=== PATIENT | female | born 1935 | race Caucasian/White ===

== ENCOUNTER 2017-12-25 00:52 | Emergency (ER) | payer MEDICARE ==
[~2017-12-25] VITALS: Ht 170.2 cm; Wt 70.3 kg
[~2017-12-25 00:52] MED LIST: LEVSOD50 PO; PRAMIPEXOLE E0.75 MG PO
[2017-12-25] MEDS ORDERED: MIRAPEX (01:03)
[2017-12-25] MEDS ORDERED: LIDO700A20 TOP (02:04)
[2017-12-25] MEDS ORDERED: HYDR1TAB94 PO (02:04)
== END 2017-12-25 02:40 | disposition home or self-care (01) ==
LOC: ER 00:52
DX: S22.31XA Fracture of one rib, right side, initial encounter for closed fracture (principal); W18.09XA Striking against other object with subsequent fall, initial encounter; Z79.899 Other long term (current) drug therapy; G20 Parkinson's disease
CPT/HCPCS: 71101; 99283

== ENCOUNTER 2018-09-27 15:27 | Observation (INO) | payer MEDICARE ==
[~2018-09-27] VITALS: Ht 170.2 cm; Wt 73.0 kg
[~2018-09-27 15:27] MED LIST changes: +HYDR1TAB94 PO; +LIDO700A20 TOP; +MIRAPEX
[2018-09-27 16:35] LABS: Calcium, Ionized (POC) 1.12 mmol/L (1.10-1.46); Chloride (POC) 104 mmol/L (98-108); Glucose (ISTAT POC) 83 mg/dL (70-99); Hemoglobin (POC) 11.2 g/dL (12.0-16.0); Potassium (POC) 4.2 mmol/L (3.5-5.5); Sodium (POC) 139 mmol/L (135-148); Total CO2 (POC) 22 mmol/L (21-32)
[2018-09-27] MEDS ORDERED: Carbidopa-Levo1 EAC1 PO (17:50)
[2018-09-27] MEDS ORDERED: HYDR1TAB94 PO (17:50)
[2018-09-27 18:51] LABS: BASOPHILS ABSOLUTE AUTO 0.03 K/mm3 (0.00-0.23); BASOPHILS PERCENT AUTO 1 % (0-2); EOSINOPHILS ABSOLUTE AUTO 0.07 K/mm3 (0.00-0.68); EOSINOPHILS PERCENT AUTO 1 % (0-6); Hematocrit 35.3 % (33.0-51.0); Hemoglobin 11.4 g/dL (11.5-16.0); IMMATURE GRAN ABSOLUTE AUTO 0.01 K/mm3 (0.00-0.10); IMMATURE GRAN PERCENT AUTO 0 % (0-1); LYMPHOCYTES ABSOLUTE AUTO 1.45 K/mm3 (0.84-5.20); LYMPHOCYTES PERCENT AUTO 24 % (21-46); MONOCYTES ABSOLUTE AUTO 0.47 K/mm3 (0.16-1.47); MONOCYTES PERCENT AUTO 8 % (4-13); Mean Corpuscular HGB 30.6 pg (26.0-34.0); Mean Corpuscular HGB Conc 32.3 g/dL (31.5-36.5); Mean Corpuscular Volume 95 fL (80-100); Mean Platelet Volume 11.3 fL (9.1-12.4); NEUTROPHILS ABSOLUTE AUTO 4.11 K/mm3 (1.96-9.15); NEUTROPHILS PERCENT AUTO 67 % (41-73); Platelet Count 216 K/mm3 (150-400); RDW Coefficient Variation 13.3 % (11.7-14.2); RDW Standard Deviation 46.4 fL (35.1-46.3); Red Blood Cell Count 3.72 M/mm3 (3.80-5.20); White Blood Cell Count 6.14 K/mm3 (4.00-11.30)
[2018-09-27 19:10] LABS: Alanine Aminotransfer (ALT/SGP 18 U/L (12-78); Albumin, Blood 3.6 g/dL (3.4-5.0); Alk Phos 96 U/L (50-136); Anion Gap 11 mmol/L (6-16); Aspartate Aminotrans (AST/SGOT 15 U/L (12-37); Bilirubin, Total 0.4 mg/dL (0.1-1.0); Blood Urea Nitrogen 21 mg/dL (8-24); Bun/Creatinine Ratio 18.9 (12.0-20.0); CO2, Blood 22 mmol/L (21-32); Calcium, Blood 8.3 mg/dL (8.5-10.1); Chloride, Blood 105 mmol/L (98-108); Creatinine, Blood 1.11 mg/dL (0.40-1.00); Globulin, Blood 3.5 g/dL (2.2-4.0); Glomerular Filtration Rate 50 (60-); Glucose, Blood 72 mg/dL (70-99); Sodium, Blood 138 mmol/L (136-145); Total Protein, Blood 7.1 g/dL (6.4-8.2); Troponin I <0.015 ng/mL (0.000-0.040)
[2018-09-27 19:16] LABS: Source, Urine Voided
[2018-09-27 19:29] LABS: Appearance, Urine Cloudy (Clear); Bilirubin, Urine Neg (Neg); Blood, Urine 1+ (Neg); Color, Urine Yellow (P-Yellow); Glucose Qualitative, Urine Neg (Neg); Ketones, Urine 1+ (Neg); Leukocyte Esterase, Urine 3+ (Neg); Nitrite, Urine Pos (Neg); Protein, Urine 1+ (Neg); Specific Gravity, Urine 1.015 (1.003-1.022); Urobilinogen, Urine NORM (Normal)
[2018-09-27 19:38] LABS: Bacteria Many /hpf; Red Blood Cells, Urine 0-2 /hpf (0-2); Squamous Epithelial Cells Few /hpf (Few); White Blood Cells, Urine TNTC /hpf (0-5)
--- NOTE | 2018-09-28 06:05 | NUR ---
SHIFT SUMMARY PT HAS BEEN SLEEPING FOR MOST OF SHIFT. PT HAD NO ACUTE ISSUES NOTED. PT IS FEELING WEAK NAD STILL UNABLE TO STAND. PT USES CALL LIGHT APPROPIATELY AND IS ABLE TO USE BEDPAN WELL. PT IS BREATHING EASY AND RESTING.
[2018-09-28] MEDS ORDERED: Carbidopa-Levo1 EAC1 PO (11:02)
[2018-09-28] MEDS ORDERED: CEPH500 PO (11:03)
--- NOTE | 2018-09-28 17:05 | NUR ---
PT IS AOX4 AND IS A HEAVY TWO PERSON TRANSFER. PT HAS A LOT OF TROUBLE WITH HER TREMORS ESPECIALLY ON THE R SIDE. FINGER FOODS WERE ORDERED TO HELP PT SO SHE COULD EAT ON HER OWN BETTER. PT BEING MONITORED NO DISTRESS NOTED.
--- NOTE | 2018-09-29 04:38 | NUR ---
SHIFT SUMMARY PATIENT HAD NO ACUTE CHANGES OBSERVED DURING THE SHIFT. AXOX 4 AND BEDFAST. PIV REMAINS INTACT. IV ABX INFUSED. TREMORS RIGHT SIDE. DENIES PAIN, SOB, AND N/V. VSS/AFEBRILE. REPORTS WILL DC IN A.M. WITH [facility] TO DR DUENAS APPOINTMENT AND TO HOME AFTER APPOINTMENT. DAY RN HAS DC INSTRUCTIONS IN CHART WITH TIMES. CALL LIGHT IN REACH. BED IN LOWEST POSITION. WILL CONTINUE TO MONITOR UNTIL DAY SHIFT NURSE ASSUMES CARE.
--- NOTE | 2018-09-29 08:27 | NUR ---
DISCHARGE NOTE RN ASSUMED CARE OF PATIENT AT 0700, PATIENT WAS BEING DISCHARGED, A&OX4. TOPHER MORE HERE TO PICK HER UP, SON AT THE BEDSIDE. DISCAHRGE PACKET WAS ALREADY PUT TOGETHER AND IN THE PATIENT CHART. RN REVIEWED ALL DISCHARGE INFORMATION, MEDICATIONS, AND PATIENT QUESTIONS. ESCORTED OUT BY WHEELCHAIR WITH TOPHER MORE, ADDIE AT HER SIDE. ALL BELONGINGS IN HAND. IV D/C BY URGENT CARE PHYSICIAN ASSISTANT RNREMBERTO/
== END 2018-09-29 08:25 | disposition home or self-care (01) ==
LOC: ER 15:27 → MEDS 15:28 → ENPENDDIS 09-29 07:01 → MEDS 09-29 08:25
PROVIDERS: Emergency Medicine; ADMIT Internal Medicine
DX: G20 Parkinson's disease (principal); N39.0 Urinary tract infection, site not specified; E03.9 Hypothyroidism, unspecified; E53.8 Deficiency of other specified B group vitamins; Z79.899 Other long term (current) drug therapy
CPT/HCPCS: 36415; 70360; 71046; 80047; 80053; 81001; 84484; 85014; 85025; 87077; 87086; 87186; 90686; 93005; 93010; 96365; 96366; 96372; 97162; 97530; 99285-25; G0378; J0696; J1650; J3420; P9612

== ENCOUNTER 2019-03-07 19:01 | Observation (INO) | payer OTHER, MEDICARE ==
[~2019-03-07] VITALS: Ht 167.6 cm; Wt 73.3 kg
[~2019-03-07 19:01] MED LIST changes: +CEPH500 PO; +Carbidopa-Levo1 EAC1 PO; -LEVSOD50 PO; +Mirapex0.25 MG PO; -PRAMIPEXOLE E0.75 MG PO
[2019-03-07 19:24] LABS: BASOPHILS ABSOLUTE AUTO 0.04 K/mm3 (0.00-0.23); BASOPHILS PERCENT AUTO 1 % (0-2); EOSINOPHILS ABSOLUTE AUTO 0.21 K/mm3 (0.00-0.68); EOSINOPHILS PERCENT AUTO 3 % (0-6); Hematocrit 33.8 % (33.0-51.0); Hemoglobin 11.1 g/dL (11.5-16.0); IMMATURE GRAN ABSOLUTE AUTO 0.03 K/mm3 (0.00-0.10); IMMATURE GRAN PERCENT AUTO 1 % (0-1); LYMPHOCYTES ABSOLUTE AUTO 1.74 K/mm3 (0.84-5.20); LYMPHOCYTES PERCENT AUTO 28 % (21-46); MONOCYTES ABSOLUTE AUTO 0.41 K/mm3 (0.16-1.47); MONOCYTES PERCENT AUTO 7 % (4-13); Mean Corpuscular HGB 30.5 pg (26.0-34.0); Mean Corpuscular HGB Conc 32.8 g/dL (31.5-36.5); Mean Corpuscular Volume 93 fL (80-100); Mean Platelet Volume 10.2 fL (9.1-12.4); NEUTROPHILS ABSOLUTE AUTO 3.76 K/mm3 (1.96-9.15); NEUTROPHILS PERCENT AUTO 61 % (41-73); Platelet Count 188 K/mm3 (150-400); RDW Standard Deviation 44.4 fL (35.1-46.3); Red Blood Cell Count 3.64 M/mm3 (3.80-5.20); White Blood Cell Count 6.19 K/mm3 (4.00-11.30)
[2019-03-07 19:35] LABS: International Normalized Ratio 0.97; Prothrombin Time Results 10.3 Sec (9.7-11.5)
[2019-03-07 19:41] LABS: Alanine Aminotransfer (ALT/SGP 20 U/L (12-78); Albumin, Blood 3.6 g/dL (3.4-5.0); Albumin/Globulin Ratio 1.1 (0.8-1.8); Alk Phos 104 U/L (50-136); Anion Gap 8 mmol/L (6-16); Aspartate Aminotrans (AST/SGOT 17 U/L (12-37); Bilirubin, Total 0.3 mg/dL (0.1-1.0); Blood Urea Nitrogen 17 mg/dL (8-24); Bun/Creatinine Ratio 13.2 (12.0-20.0); CO2, Blood 25 mmol/L (21-32); Chloride, Blood 105 mmol/L (98-108); Creatinine, Blood 1.29 mg/dL (0.40-1.00); Ethanol (Alcohol), Blood, Med <3 mg/dL; Globulin, Blood 3.3 g/dL (2.2-4.0); Glomerular Filtration Rate 42 (60-); Glucose, Blood 96 mg/dL (70-99); Potassium, Blood 4.2 mmol/L (3.5-5.5); Sodium, Blood 138 mmol/L (136-145); Total Protein, Blood 6.9 g/dL (6.4-8.2)
[2019-03-07 21:11] LABS: Source, Urine Clean Catch
[2019-03-07 21:25] LABS: Appearance, Urine Clear (Clear); Bilirubin, Urine Neg (Neg); Blood, Urine 1+ (Neg); Color, Urine Yellow (P-Yellow); Glucose Qualitative, Urine Neg (Neg); Ketones, Urine Neg (Neg); Leukocyte Esterase, Urine 1+ (Neg); Nitrite, Urine Neg (Neg); Protein, Urine Neg (Neg); Specific Gravity, Urine 1.005 (1.003-1.022); Urobilinogen, Urine NORM (Normal)
[2019-03-07] MEDS ORDERED: LEVSOD50 PO (21:38)
[2019-03-07 21:42] LABS: Bacteria Rare /hpf; Red Blood Cells, Urine Rare /hpf (0-2); Squamous Epithelial Cells Few /hpf (Few)
[2019-03-08 03:50] LABS: BASOPHILS ABSOLUTE AUTO 0.03 K/mm3 (0.00-0.23); BASOPHILS PERCENT AUTO 1 % (0-2); EOSINOPHILS ABSOLUTE AUTO 0.13 K/mm3 (0.00-0.68); EOSINOPHILS PERCENT AUTO 2 % (0-6); Hematocrit 30.4 % (33.0-51.0); Hemoglobin 9.9 g/dL (11.5-16.0); IMMATURE GRAN ABSOLUTE AUTO 0.02 K/mm3 (0.00-0.10); IMMATURE GRAN PERCENT AUTO 0 % (0-1); LYMPHOCYTES ABSOLUTE AUTO 1.14 K/mm3 (0.84-5.20); LYMPHOCYTES PERCENT AUTO 17 % (21-46); MONOCYTES ABSOLUTE AUTO 0.49 K/mm3 (0.16-1.47); MONOCYTES PERCENT AUTO 8 % (4-13); Mean Corpuscular HGB 31.1 pg (26.0-34.0); Mean Corpuscular HGB Conc 32.6 g/dL (31.5-36.5); Mean Platelet Volume 10.1 fL (9.1-12.4); NEUTROPHILS ABSOLUTE AUTO 4.74 K/mm3 (1.96-9.15); NEUTROPHILS PERCENT AUTO 72 % (41-73); Platelet Count 156 K/mm3 (150-400); RDW Coefficient Variation 13.2 % (11.7-14.2); RDW Standard Deviation 46.2 fL (35.1-46.3); Red Blood Cell Count 3.18 M/mm3 (3.80-5.20); White Blood Cell Count 6.55 K/mm3 (4.00-11.30)
[2019-03-08 03:51] LABS: Mean Corpuscular Volume 96 fL (80-100)
[2019-03-08 04:10] LABS: Bilirubin, Total 0.4 mg/dL (0.1-1.0); Bun/Creatinine Ratio 14.8 (12.0-20.0); Calcium, Blood 7.9 mg/dL (8.5-10.1); Creatinine, Blood 1.15 mg/dL (0.40-1.00)
--- NOTE | 2019-03-08 07:31 | NUR ---
SHIFT SUMMARY PT NEW ADMIT THIS SHIFT. AAOX4. BRUISE TO LEFT BREAST. DISCOMFORT INCREASES INHALING, PAIN CONTROLLED WITH 1 NORCO THIS SHIFT. NO NAUSEA/EMESIS. 2L VIA NC. ENCOURAGE DEEP BREATHING. PT RESTING WELL THIS AM WITH CALL LIGHT IN AMIRA LANTIGUA. REPORT TO DAY SHIFT RN.
[2019-03-08 10:53] LABS: Hematocrit 33.9 % (33.0-51.0); Hemoglobin 11.1 g/dL (11.5-16.0)
--- NOTE | 2019-03-08 16:23 | NUR ---
SHIFT SUMMARY PT HAS DONE WELL THIS SHIFT. PAIN MANAGED WITH 2 5/325MG NORCO Q4-REPORTS TOLERABLE PAIN LEVEL 4/10. THERAPY IN TO WORK WITH PT, AMBULATED 1 ASSIST TO BATHROOM USING FWW. CONCERNS THAT WITH PTS BEING IN HOSPITAL IN [place] THAT PT WILL BE UNABLE TO CARE FORSELF AT HOME AT THIS TIME.
[2019-03-08 16:41] LABS: Hematocrit 31.5 % (33.0-51.0); Hemoglobin 10.5 g/dL (11.5-16.0)
[2019-03-08 22:15] LABS: Hematocrit 31.2 % (33.0-51.0); Hemoglobin 10.2 g/dL (11.5-16.0)
[2019-03-09 04:46] LABS: BASOPHILS ABSOLUTE AUTO 0.03 K/mm3 (0.00-0.23); BASOPHILS PERCENT AUTO 1 % (0-2); EOSINOPHILS ABSOLUTE AUTO 0.34 K/mm3 (0.00-0.68); EOSINOPHILS PERCENT AUTO 6 % (0-6); Hematocrit 30.5 % (33.0-51.0); IMMATURE GRAN ABSOLUTE AUTO 0.01 K/mm3 (0.00-0.10); IMMATURE GRAN PERCENT AUTO 0 % (0-1); LYMPHOCYTES ABSOLUTE AUTO 1.28 K/mm3 (0.84-5.20); LYMPHOCYTES PERCENT AUTO 24 % (21-46); MONOCYTES ABSOLUTE AUTO 0.47 K/mm3 (0.16-1.47); MONOCYTES PERCENT AUTO 9 % (4-13); Mean Corpuscular HGB 31.3 pg (26.0-34.0); Mean Corpuscular HGB Conc 32.8 g/dL (31.5-36.5); Mean Corpuscular Volume 95 fL (80-100); Mean Platelet Volume 10.3 fL (9.1-12.4); NEUTROPHILS ABSOLUTE AUTO 3.23 K/mm3 (1.96-9.15); NEUTROPHILS PERCENT AUTO 60 % (41-73); Platelet Count 145 K/mm3 (150-400); RDW Coefficient Variation 12.9 % (11.7-14.2); RDW Standard Deviation 44.4 fL (35.1-46.3); White Blood Cell Count 5.36 K/mm3 (4.00-11.30)
--- NOTE | 2019-03-09 07:40 | NUR ---
SHIFT SUMMARY PT RESTED WELL T/O NIGHT. AAOX4. DISCOMFORT CONTROLLED WITH 2 NORCO X2 THIS SHIFT. NO NAUSEA/EMESIS. BRUSING TO LEFT BREAST + MID CHEST WITH NO ACUTE CHANGE THIS SHIFT. PT UP TO RESTROOM SBA WITH FWW, TOLERATED WELL. CONTINUE TO ENCOURAGE DEEP BREATHING TOLERATED. 2L VIA NC. CALL LIGHT IN REACH AT THIS TIME, AMIRA. REPORT TO DAY SHIFT RN.
--- NOTE | 2019-03-09 17:54 | NUR ---
SHIFT SUMMARY PAIN HAS BEEN MANAGED WITH PO PAIN MEDICATION. PT IS A 1 ASSIST WITH GAIT BELT AND WALKER FOR TRANSFERS. FAMILY HAS BEEN AT THE BEDSIDE FOR MUCH OF THE DAY. PLAN FOR POSSIBLE DISCHARGE TO SNF WHEN BED IS AVALIABLE. VSS. WILL MONITOR UNTIL REPORT TO ONCOMING RN.
--- NOTE | 2019-03-10 07:30 | NUR ---
SUMMARY: NO ACUTE CHANGES THIS SHIFT. VSS, AFEBRILE, ROOM AIR. DENIES SOB, DIZZINESS, CHEST PAIN. PAIN WELL CONTROLLED WITH 2 NORCO X2 THIS SHIFT. DC PLANNING TO COORDINATE POSSIBILITY OF SNF DC SO THAT PT MAY BE WITH .
--- NOTE | 2019-03-10 16:41 | NUR ---
DISCHARGE REPORT CALLED TO MAXI AT [facility] AT APPROXIMATELY 1610. PT GIVEN DULCOLAX PRIOR TO DISCHARGE. FAMILY NOTIFIED PER PT REQUEST PRIOR TO TRANSFER TO [facility]. DISCHARGE INSTRUCTION AND SCRIPT SENT WITH PT.
== END 2019-03-10 16:31 ==
LOC: ER 19:01 → SURS 19:02
PROVIDERS: Emergency Medicine; Internal Medicine; ADMIT Hospitalist
DX: S22.20XA Unspecified fracture of sternum, initial encounter for closed fracture (principal); E03.9 Hypothyroidism, unspecified; N18.3 Chronic kidney disease, stage 3 (moderate); G20 Parkinson's disease; V89.2XXA Person injured in unspecified motor-vehicle accident, traffic, initial encounter
CPT/HCPCS: 36415; 70450; 71045; 71260; 72125; 74177; 80048; 80053; 81001; 83690; 85014; 85018; 85025; 85610; 85730; 86850; 86900; 86901; 87077; 87086; 87186; 93005; 93010; 94762; 96374-59; 97110; 97116; 97162; 97166; 97530; 97535; 99285-25; A9270-GY; G0378; G0480; J3010; J7030; Q9967

== ENCOUNTER 2022-04-24 07:38 | Emergency (ER) | payer OTHER ==
[~2022-04-24] VITALS: Ht 170.2 cm; Wt 69.0 kg
[~2022-04-24 07:38] MED LIST changes: +LEVSOD50 PO
[2022-04-24] MEDS ORDERED: LEVSOD100 PO (10:38)
[2022-04-24] MEDS ORDERED: CARBIDOPA-LEVO1 EA15 PO (10:41)
== END 2022-04-24 12:50 | disposition home or self-care (01) ==
LOC: ER 07:38
DX: S09.90XA Unspecified injury of head, initial encounter (principal); S01.01XA Laceration without foreign body of scalp, initial encounter; G20 Parkinson's disease; W01.198A Fall on same level from slipping, tripping and stumbling with subsequent striking against other object, initial encounter
CPT/HCPCS: 70450; 72125; 97162; 97530; J7030

== ENCOUNTER 2023-02-16 14:28 | Inpatient (IN) | payer OTHER ==
[~2023-02-16] VITALS: Ht 170.2 cm; Wt 69.4 kg
[~2023-02-16 14:28] MED LIST changes: +CARBIDOPA-LEVO1 EA15 PO; +LEVSOD100 PO
[2023-02-16 15:38] LABS: BASOPHILS ABSOLUTE AUTO 0.05 K/mm3 (0.00-0.23); BASOPHILS PERCENT AUTO 1 % (0-2); EOSINOPHILS ABSOLUTE AUTO 0.05 K/mm3 (0.00-0.68); EOSINOPHILS PERCENT AUTO 1 % (0-6); Hematocrit 39.3 % (33.0-51.0); Hemoglobin 13.1 g/dL (11.5-16.0); IMMATURE GRAN ABSOLUTE AUTO 0.01 K/mm3 (0.00-0.10); IMMATURE GRAN PERCENT AUTO 0 % (0-1); LYMPHOCYTES ABSOLUTE AUTO 1.45 K/mm3 (0.84-5.20); LYMPHOCYTES PERCENT AUTO 25 % (21-46); MONOCYTES ABSOLUTE AUTO 0.43 K/mm3 (0.16-1.47); MONOCYTES PERCENT AUTO 7 % (4-13); Mean Corpuscular HGB 30.4 pg (26.0-34.0); Mean Corpuscular HGB Conc 33.3 g/dL (31.5-36.5); Mean Corpuscular Volume 91 fL (80-100); Mean Platelet Volume 10.6 fL (9.1-12.4); NEUTROPHILS ABSOLUTE AUTO 3.83 K/mm3 (1.96-9.15); NEUTROPHILS PERCENT AUTO 66 % (41-73); Platelet Count 166 K/mm3 (150-400); RDW Coefficient Variation 14.2 % (11.7-14.2); RDW Standard Deviation 48.2 fL (35.1-46.3); Red Blood Cell Count 4.31 M/mm3 (3.80-5.20); White Blood Cell Count 5.82 K/mm3 (4.00-11.30)
[2023-02-16 15:54] LABS: Albumin, Blood 3.3 g/dL (3.4-5.0); Bilirubin, Total 0.4 mg/dL (0.1-1.0); Bun/Creatinine Ratio 19.8 (12.0-20.0); Creatinine, Blood 1.21 mg/dL (0.40-1.00); Globulin, Blood 3.2 g/dL (2.2-4.0); Potassium, Blood 3.8 mmol/L (3.5-5.5); Thyroid Stimulating Hormone 6.66 uIU/mL (0.360-4.800); Total Protein, Blood 6.5 g/dL (6.4-8.2)
[2023-02-16 18:55] LABS: Source, Urine Clean Catch
[2023-02-16 19:06] LABS: Appearance, Urine Hazy (Clear); Bilirubin, Urine Neg (Neg); Blood, Urine Neg (Neg); Color, Urine Yellow (P-Yellow); Glucose Qualitative, Urine Neg (Neg); Ketones, Urine Neg (Neg); Leukocyte Esterase, Urine 2+ (Neg); Nitrite, Urine Pos (Neg); Protein, Urine 1+ (Neg); Urobilinogen, Urine NORM (Normal)
[2023-02-16 19:27] LABS: Bacteria Many /hpf; Hyaline Casts 0-2 /lpf (0-2); Mucus Light (0-Heavy); Red Blood Cells, Urine 0-2 /hpf (0-2); Squamous Epithelial Cells Few /hpf (Few)
[2023-02-16 20:37] VITALS: BP 118/62
[2023-02-17] MEDS ORDERED: PRAMIPEXOLE D0.25 M1 PO (00:12)
[2023-02-17 03:29] VITALS: BP 128/91
[2023-02-17 05:19] LABS: Bun/Creatinine Ratio 17.1 (12.0-20.0); Calcium, Blood 8.3 mg/dL (8.5-10.1); Creatinine, Blood 1.23 mg/dL (0.40-1.00); Magnesium, Blood 2.9 mg/dL (1.6-2.4); Potassium, Blood 3.8 mmol/L (3.5-5.5)
--- NOTE | 2023-02-17 06:37 | NUR ---
SHIFT SINGH, PT RESTING IN BED, PT HAD BAG OF IV LR AND A MAG RIDDER, PT HAD STATED SHE WAS FELLING A LITLE BETTER, EMBEDDED SOFTWARE TEST ENGINEER REPORTING PT WAS MOVING BETTER NOW THAN WHEN FIRST ADMITTED. PT ABLE TO AMBULATE TO WITH WALKER AND 1 ASSIST. CALL LIGHT IN REACH.
[2023-02-17 07:44] VITALS: BP 135/94
[2023-02-17 15:11] VITALS: BP 117/72
--- NOTE | 2023-02-17 18:27 | NUR ---
SHIFT SUMMARY PT A&OX4 AND PLEASANT. PT WAS ABLE TO AMBULATE TO BATHROOM T/O DAY, WITH FWW, AND DENIED FEELING DIZZY. NO C/O PAIN. TOLERATING MEALS. VSS. FAMILY AT BEDSIDE FOR SEVERAL HOURS IN AFTERNOON. CALLS APPROPRIATLY. BED IN LOWEST POSITION AND CALL LIGHT IN REACH.
[2023-02-17 19:49] VITALS: BP 129/91
[2023-02-18 04:08] VITALS: BP 109/81
[2023-02-18 05:11] LABS: Bun/Creatinine Ratio 18.5 (12.0-20.0); Calcium, Blood 8.5 mg/dL (8.5-10.1); Creatinine, Blood 1.35 mg/dL (0.40-1.00); Potassium, Blood 3.9 mmol/L (3.5-5.5)
--- NOTE | 2023-02-18 06:02 | NUR ---
SHIFT SUMMERY, PT RESTING IN BED, PT APPEARED TO BE SLEEPING WELL DURRING THE NIGHT. PT STATED SHE WAS FEELING BETTER. CALL LIGHT IN REACH.
[2023-02-18 07:24] VITALS: BP 136/92
[2023-02-18] MEDS ORDERED: ASPI81CH PO (13:59)
[2023-02-18] MEDS ORDERED: METO50 PO (14:00)
--- NOTE | 2023-02-18 15:26 | NUR ---
DISCHARGE NOTE- PT WAS GIVEN VERBAL AND WRITTEN DISCHARGE INSTRUCTIONS AND ACKNOWLEDGED UNDERSTANDING OF THEM. FAMILY WAS PRESENT FOR DISCHARGE TEACHING. IV AND TELE DC'D PRIOR TO DISCHARGE NO S&S OF DISTRESS NOTED AT THIS TIME. DIGITAL PRODUCT SPECIALIST ASSISTING THE PT TO GET READY TO GO, PT WILL BED ESCORTED OUT VIA WC BY THE DIGITAL PRODUCT SPECIALIST, FAMILY TO TRANSPORT HER HOME ARE AT THE BEDSIDE AT THIS TIME.
== END 2023-02-18 15:34 | disposition home or self-care (01) | DRG 309 ==
LOC: ER 14:28 → MEDS 14:29 → ENPENDDIS 02-18 13:30 → MEDS 02-18 15:34
PROVIDERS: Emergency Medicine; Internal Medicine; Nurse Practitioner Acute Care; ADMIT Student in an Organized Health Care Education/Training Program
PROC: 3E033XZ Introduction of Vasopressor into Peripheral Vein, Percutaneous Approach (ICD-10-PCS; principal; 2023-02-16)
DX: I48.91 Unspecified atrial fibrillation (principal); N39.0 Urinary tract infection, site not specified; G20 Parkinson's disease; N18.30 Chronic kidney disease, stage 3 unspecified; R55 Syncope and collapse; E03.9 Hypothyroidism, unspecified; Z79.890 Hormone replacement therapy; Z79.899 Other long term (current) drug therapy; Z96.82 Presence of neurostimulator; W19.XXXA Unspecified fall, initial encounter
CPT/HCPCS: 36415; 71045; 80048; 80053; 81001; 83735; 83880; 84443; 84484; 85025; 93005; 93010; 93306; 96361; 96365; 96366; 96372; 96374; 96375; 99285-25; A9270; G0378; J1650; J2405; J3475; J7040; J7120

== ENCOUNTER 2023-02-18 23:01 | Emergency (ER) | payer OTHER ==
[~2023-02-18] VITALS: Ht 170.2 cm; Wt 70.3 kg
[~2023-02-18 23:01] MED LIST changes: +ASPI81CH PO; +METO50 PO; +PRAMIPEXOLE D0.25 M1 PO
[2023-02-19 00:21] LABS: BASOPHILS ABSOLUTE AUTO 0.04 K/mm3 (0.00-0.23); BASOPHILS PERCENT AUTO 1 % (0-2); EOSINOPHILS ABSOLUTE AUTO 0.12 K/mm3 (0.00-0.68); EOSINOPHILS PERCENT AUTO 2 % (0-6); Hemoglobin 13.5 g/dL (11.5-16.0); IMMATURE GRAN ABSOLUTE AUTO 0.02 K/mm3 (0.00-0.10); IMMATURE GRAN PERCENT AUTO 0 % (0-1); LYMPHOCYTES ABSOLUTE AUTO 1.29 K/mm3 (0.84-5.20); LYMPHOCYTES PERCENT AUTO 16 % (21-46); MONOCYTES ABSOLUTE AUTO 0.49 K/mm3 (0.16-1.47); MONOCYTES PERCENT AUTO 6 % (4-13); Mean Corpuscular HGB 30.2 pg (26.0-34.0); Mean Corpuscular HGB Conc 33.8 g/dL (31.5-36.5); Mean Corpuscular Volume 90 fL (80-100); Mean Platelet Volume 10.7 fL (9.1-12.4); NEUTROPHILS ABSOLUTE AUTO 6.09 K/mm3 (1.96-9.15); NEUTROPHILS PERCENT AUTO 76 % (41-73); Platelet Count 173 K/mm3 (150-400); RDW Coefficient Variation 14.3 % (11.7-14.2); RDW Standard Deviation 46.5 fL (35.1-46.3); Red Blood Cell Count 4.47 M/mm3 (3.80-5.20); White Blood Cell Count 8.05 K/mm3 (4.00-11.30)
[2023-02-19 00:50] LABS: Albumin, Blood 3.6 g/dL (3.4-5.0); Bilirubin, Total 0.4 mg/dL (0.1-1.0); Bun/Creatinine Ratio 15.8 (12.0-20.0); Creatinine, Blood 1.77 mg/dL (0.40-1.00); Globulin, Blood 3.5 g/dL (2.2-4.0); Potassium, Blood 4.1 mmol/L (3.5-5.5); Total Protein, Blood 7.1 g/dL (6.4-8.2)
[2023-02-19 02:06] VITALS: BP 113/74
== END 2023-02-19 03:21 | disposition home or self-care (01) ==
LOC: ER 23:01
PROVIDERS: Student in an Organized Health Care Education/Training Program
DX: I95.1 Orthostatic hypotension (principal); R79.89 Other specified abnormal findings of blood chemistry; I48.91 Unspecified atrial fibrillation; I50.9 Heart failure, unspecified; Z79.899 Other long term (current) drug therapy; Z79.82 Long term (current) use of aspirin; G20 Parkinson's disease; E03.9 Hypothyroidism, unspecified; N18.30 Chronic kidney disease, stage 3 unspecified
CPT/HCPCS: 80053; 85025; 96360; 96361; 99284-25; J7030

== ENCOUNTER 2023-05-30 11:26 | Emergency (ER) | payer OTHER ==
[~2023-05-30] VITALS: Ht 170.2 cm; Wt 69.4 kg
[2023-05-30 11:45] LABS: BASOPHILS ABSOLUTE AUTO 0.03 K/mm3 (0.00-0.23); BASOPHILS PERCENT AUTO 1 % (0-2); EOSINOPHILS PERCENT AUTO 2 % (0-6); Hematocrit 38.9 % (33.0-51.0); Hemoglobin 13.1 g/dL (11.5-16.0); IMMATURE GRAN ABSOLUTE AUTO 0.01 K/mm3 (0.00-0.10); IMMATURE GRAN PERCENT AUTO 0 % (0-1); LYMPHOCYTES ABSOLUTE AUTO 1.09 K/mm3 (0.84-5.20); LYMPHOCYTES PERCENT AUTO 19 % (21-46); MONOCYTES ABSOLUTE AUTO 0.37 K/mm3 (0.16-1.47); MONOCYTES PERCENT AUTO 6 % (4-13); Mean Corpuscular HGB 31.3 pg (26.0-34.0); Mean Corpuscular HGB Conc 33.7 g/dL (31.5-36.5); Mean Corpuscular Volume 93 fL (80-100); Mean Platelet Volume 10.3 fL (9.1-12.4); NEUTROPHILS ABSOLUTE AUTO 4.18 K/mm3 (1.96-9.15); NEUTROPHILS PERCENT AUTO 72 % (41-73); NRBC ABSOLUTE 0.02 K/mm3 (0.00-0.02); NRBC Auto 0.3 /100 WBC (0.0-0.2); Platelet Count 165 K/mm3 (150-400); RDW Coefficient Variation 13.9 % (11.7-14.2); RDW Standard Deviation 47.4 fL (35.1-46.3); Red Blood Cell Count 4.19 M/mm3 (3.80-5.20); White Blood Cell Count 5.78 K/mm3 (4.00-11.30)
[2023-05-30] MEDS ORDERED: B12-FOLIC ACID1 EACH PO (11:45)
[2023-05-30] MEDS ORDERED: PRESERVISION A1 EAC2 PO (11:46)
[2023-05-30 12:08] LABS: Albumin, Blood 3.3 g/dL (3.4-5.0); Bilirubin, Total 0.6 mg/dL (0.1-1.0); Bun/Creatinine Ratio 21.1 (12.0-20.0); Calcium, Blood 8.6 mg/dL (8.5-10.1); Creatinine, Blood 1.33 mg/dL (0.40-1.00); Globulin, Blood 3.2 g/dL (2.2-4.0); Total Protein, Blood 6.5 g/dL (6.4-8.2)
[2023-05-30 13:54] LABS: Source, Urine Clean Catch
[2023-05-30 14:12] LABS: Appearance, Urine Hazy (Clear); Bilirubin, Urine Neg (Neg); Blood, Urine Neg (Neg); Color, Urine Yellow (P-Yellow); Glucose Qualitative, Urine Neg (Neg); Ketones, Urine Neg (Neg); Leukocyte Esterase, Urine 1+ (Neg); Nitrite, Urine Neg (Neg); Protein, Urine 1+ (Neg); Specific Gravity, Urine 1.015 (1.003-1.022); Urobilinogen, Urine NORM (Normal)
[2023-05-30 14:15] VITALS: BP 130/96
[2023-05-30 14:21] LABS: Bacteria Many /hpf; Red Blood Cells, Urine Not Seen /hpf (0-2); Squamous Epithelial Cells Rare /hpf (Few)
== END 2023-05-30 14:39 | disposition home or self-care (01) ==
LOC: ER 11:26
PROVIDERS: Student in an Organized Health Care Education/Training Program
DX: E86.0 Dehydration (principal); I95.1 Orthostatic hypotension; R40.4 Transient alteration of awareness; E03.9 Hypothyroidism, unspecified; I48.91 Unspecified atrial fibrillation; N18.30 Chronic kidney disease, stage 3 unspecified; Z79.899 Other long term (current) drug therapy; Z79.82 Long term (current) use of aspirin; Z79.890 Hormone replacement therapy
CPT/HCPCS: 70450; 80053; 81001; 82947; 83880; 84146; 84484; 85025; 93005; 93010; 96374; 99285-25; J3475; J7030

== ENCOUNTER 2023-07-27 11:10 | Emergency (ER) | payer OTHER ==
[~2023-07-27] VITALS: Ht 170.2 cm; Wt 69.4 kg
[~2023-07-27 11:10] MED LIST changes: +B12-FOLIC ACID1 EACH PO; +PRESERVISION A1 EAC2 PO
[2023-07-27 11:52] LABS: BASOPHILS ABSOLUTE AUTO 0.05 K/mm3 (0.00-0.23); BASOPHILS PERCENT AUTO 1 % (0-2); EOSINOPHILS PERCENT AUTO 1 % (0-6); Hemoglobin 13.8 g/dL (11.5-16.0); IMMATURE GRAN ABSOLUTE AUTO 0.02 K/mm3 (0.00-0.10); IMMATURE GRAN PERCENT AUTO 0 % (0-1); LYMPHOCYTES ABSOLUTE AUTO 1.18 K/mm3 (0.84-5.20); LYMPHOCYTES PERCENT AUTO 16 % (21-46); MONOCYTES ABSOLUTE AUTO 0.54 K/mm3 (0.16-1.47); MONOCYTES PERCENT AUTO 8 % (4-13); Mean Corpuscular HGB 31.8 pg (26.0-34.0); Mean Corpuscular HGB Conc 33.7 g/dL (31.5-36.5); Mean Corpuscular Volume 95 fL (80-100); NEUTROPHILS ABSOLUTE AUTO 5.31 K/mm3 (1.96-9.15); NEUTROPHILS PERCENT AUTO 74 % (41-73); RDW Coefficient Variation 13.5 % (11.7-14.2); RDW Standard Deviation 46.8 fL (35.1-46.3); Red Blood Cell Count 4.34 M/mm3 (3.80-5.20)
[2023-07-27] MEDS ORDERED: Vitamin D1000 UNI1 (11:56)
[2023-07-27 12:17] LABS: Albumin, Blood 3.7 g/dL (3.4-5.0); Albumin/Globulin Ratio 1.1 (0.8-1.8); Bilirubin, Total 0.7 mg/dL (0.1-1.0); Bun/Creatinine Ratio 21.5 (12.0-20.0); Calcium, Blood 8.5 mg/dL (8.5-10.1); Creatinine, Blood 1.58 mg/dL (0.40-1.00); Globulin, Blood 3.4 g/dL (2.2-4.0); Potassium, Blood 4.4 mmol/L (3.5-5.5); Total Protein, Blood 7.1 g/dL (6.4-8.2)
[2023-07-27 14:15] VITALS: BP 123/90
== END 2023-07-27 14:37 | disposition home or self-care (01) ==
LOC: ER 11:10
PROVIDERS: Emergency Medicine
DX: I95.9 Hypotension, unspecified (principal); I48.91 Unspecified atrial fibrillation; G20.A1 Parkinson's disease without dyskinesia, without mention of fluctuations; E03.9 Hypothyroidism, unspecified; Z79.82 Long term (current) use of aspirin; Z79.890 Hormone replacement therapy; Z79.899 Other long term (current) drug therapy
CPT/HCPCS: 71046; 80053; 84484; 85025; 93005; 93010; 96360; 96361; 99285-25; J7030

== ENCOUNTER 2023-08-03 11:35 | Emergency (ER) | payer OTHER ==
[~2023-08-03] VITALS: Ht 170.2 cm; Wt 69.8 kg
[~2023-08-03 11:35] MED LIST changes: +B-121000 MC3 PO; -B12-FOLIC ACID1 EACH PO; +Vitamin D1000 UNI1 PO
[2023-08-03 12:21] LABS: BASOPHILS ABSOLUTE AUTO 0.03 K/mm3 (0.00-0.23); BASOPHILS PERCENT AUTO 0 % (0-2); EOSINOPHILS ABSOLUTE AUTO 0.09 K/mm3 (0.00-0.68); EOSINOPHILS PERCENT AUTO 1 % (0-6); Hemoglobin 13.8 g/dL (11.5-16.0); IMMATURE GRAN ABSOLUTE AUTO 0.03 K/mm3 (0.00-0.10); IMMATURE GRAN PERCENT AUTO 0 % (0-1); LYMPHOCYTES ABSOLUTE AUTO 1.14 K/mm3 (0.84-5.20); LYMPHOCYTES PERCENT AUTO 16 % (21-46); MONOCYTES ABSOLUTE AUTO 0.45 K/mm3 (0.16-1.47); MONOCYTES PERCENT AUTO 6 % (4-13); Mean Corpuscular HGB 31.5 pg (26.0-34.0); Mean Corpuscular HGB Conc 33.7 g/dL (31.5-36.5); Mean Corpuscular Volume 94 fL (80-100); Mean Platelet Volume 10.7 fL (9.1-12.4); NEUTROPHILS ABSOLUTE AUTO 5.32 K/mm3 (1.96-9.15); NEUTROPHILS PERCENT AUTO 75 % (41-73); Platelet Count 189 K/mm3 (150-400); RDW Coefficient Variation 13.2 % (11.7-14.2); RDW Standard Deviation 45.5 fL (35.1-46.3); Red Blood Cell Count 4.38 M/mm3 (3.80-5.20); White Blood Cell Count 7.06 K/mm3 (4.00-11.30)
[2023-08-03 12:43] LABS: Albumin, Blood 3.6 g/dL (3.4-5.0); Bilirubin, Total 0.6 mg/dL (0.1-1.0); Bun/Creatinine Ratio 17.1 (12.0-20.0); Calcium, Blood 8.6 mg/dL (8.5-10.1); Creatinine, Blood 1.58 mg/dL (0.40-1.00); Free Thyroxine 1.07 ng/dL (0.70-1.60); Globulin, Blood 3.6 g/dL (2.2-4.0); Potassium, Blood 3.7 mmol/L (3.5-5.5); Total Protein, Blood 7.2 g/dL (6.4-8.2)
[2023-08-03 14:15] VITALS: BP 149/105
== END 2023-08-03 15:19 | disposition home or self-care (01) ==
LOC: ER 11:35
PROVIDERS: Physician Assistant
DX: I95.89 Other hypotension (principal); E86.1 Hypovolemia; G20.A1 Parkinson's disease without dyskinesia, without mention of fluctuations; E03.9 Hypothyroidism, unspecified; I48.91 Unspecified atrial fibrillation; N18.30 Chronic kidney disease, stage 3 unspecified; Z79.82 Long term (current) use of aspirin; Z79.890 Hormone replacement therapy; Z79.899 Other long term (current) drug therapy; Z95.0 Presence of cardiac pacemaker
CPT/HCPCS: 71046; 80053; 84439; 85025; 93005; 93010; 96361; 96374; 99285-25; A9270; J7030

== ENCOUNTER 2023-08-05 18:42 | Inpatient (IN) | payer OTHER ==
[~2023-08-05] VITALS: Ht 170.2 cm; Wt 71.6 kg
[2023-08-05] MEDS ORDERED: PRAM.125 PO (18:51)
[2023-08-05 19:13] LABS: BASOPHILS ABSOLUTE AUTO 0.03 K/mm3 (0.00-0.23); BASOPHILS PERCENT AUTO 0 % (0-2); EOSINOPHILS ABSOLUTE AUTO 0.08 K/mm3 (0.00-0.68); EOSINOPHILS PERCENT AUTO 1 % (0-6); Hematocrit 31.4 % (33.0-51.0); Hemoglobin 10.6 g/dL (11.5-16.0); IMMATURE GRAN ABSOLUTE AUTO 0.04 K/mm3 (0.00-0.10); IMMATURE GRAN PERCENT AUTO 1 % (0-1); LYMPHOCYTES ABSOLUTE AUTO 1.26 K/mm3 (0.84-5.20); LYMPHOCYTES PERCENT AUTO 16 % (21-46); MONOCYTES ABSOLUTE AUTO 0.55 K/mm3 (0.16-1.47); MONOCYTES PERCENT AUTO 7 % (4-13); Mean Corpuscular HGB 32.1 pg (26.0-34.0); Mean Corpuscular HGB Conc 33.8 g/dL (31.5-36.5); Mean Corpuscular Volume 95 fL (80-100); Mean Platelet Volume 10.7 fL (9.1-12.4); NEUTROPHILS ABSOLUTE AUTO 6.11 K/mm3 (1.96-9.15); NEUTROPHILS PERCENT AUTO 76 % (41-73); Platelet Count 165 K/mm3 (150-400); RDW Coefficient Variation 13.5 % (11.7-14.2); RDW Standard Deviation 46.7 fL (35.1-46.3); White Blood Cell Count 8.07 K/mm3 (4.00-11.30)
[2023-08-05 19:43] LABS: Albumin, Blood 2.8 g/dL (3.4-5.0); Bilirubin, Total 0.3 mg/dL (0.1-1.0); Bun/Creatinine Ratio 32.2 (12.0-20.0); Creatinine, Blood 1.46 mg/dL (0.40-1.00); Globulin, Blood 2.8 g/dL (2.2-4.0); Potassium, Blood 4.1 mmol/L (3.5-5.5); Total Protein, Blood 5.6 g/dL (6.4-8.2)
[2023-08-05 20:07] LABS: Free Thyroxine 0.96 ng/dL (0.70-1.60); Magnesium, Blood 2.2 mg/dL (1.6-2.4); Thyroid Stimulating Hormone 7.44 uIU/mL (0.360-4.800)
[2023-08-05 21:54] LABS: Source, Urine Clean Catch
[2023-08-05 21:59] LABS: Appearance, Urine Hazy (Clear); Bilirubin, Urine Neg (Neg); Blood, Urine 5+ (Neg); Color, Urine Yellow (P-Yellow); Glucose Qualitative, Urine Neg (Neg); Ketones, Urine Neg (Neg); Leukocyte Esterase, Urine 1+ (Neg); Nitrite, Urine Neg (Neg); Protein, Urine 1+ (Neg); Specific Gravity, Urine 1.015 (1.003-1.022); Urobilinogen, Urine NORM (Normal)
[2023-08-05 22:07] LABS: Bacteria Many /hpf; Squamous Epithelial Cells Few /hpf (Few)
[2023-08-05 22:27] LABS: Percent Saturation 34.7 % (15.0-50.0)
[2023-08-06] VITALS (63 sets, daily range): BP systolic 68–134; BP diastolic 42–93
--- NOTE | 2023-08-06 01:03 | NUR ---
ASSUMPTION OF CARE NOTE PT ARRIVED TO PCU AT 0000, ARRIVED VIA ER LINDA. REPORT FROM [facility] ED RN. PT TRANSFERRED TO HOSPITAL BED VIA SLIDE SHEET AND 2 STAFF. PT A&O X4, MILD FORGETFULNESS. VS; BP 109/84, HR 109, RR 20, AND SPO2 100%. PT ON RA, DENIES SOB OR DIFFICULTY BREATHING. PT DENIES CP OR PRESSURE, DENIES PALPITATIONS. PT DOES REPORT DIZZINESS BUT STATES AT THIS TIME SHE IS "OKAY" AND DENIES DIZZINESS. PUREWICK AND ATTENDS PLACED. SKIN IS INTACT, NO OPEN SORES OR REDDENED AREAS. PT ORIENTED TO ROOM AND CALL LIGHT.
--- NOTE | 2023-08-06 01:23 | NUR ---
0100 - SPOKE TO DR. WHEELER REGARDING PT WITH LABILE BPS IN THE 70S-80S SYSTOLIC. PT REVERSE TRENDELENBURG'D AND BP RECHECKED ON OPPOSITE ARM. REMAINS LOW. ASYMPTOMATIC. ORDER FOR LACTIC ACID, ROCEPHIN 1G IV Q24H, BNP, AND 1L IVF @ 75ML/HR RECEIVED. UPDATED PRIMARY RN FAY
--- NOTE | 2023-08-06 01:48 | NUR ---
UPDATE THIS RN STARTED IVF AND ABX PER NEW ORDERS FROM HOSPITALIST FOR LABILE BLOOD PRESSURES. CURRENTLY INFUSING; WILL CONTINUE TO MONITOR. PT DENIES ANY SX FROM LOW BLOOD PRESSURES EXCEPT THAT SHE IS "TIRED". CALL LIGHT IN REACH
[2023-08-06 02:16] LABS: BASOPHILS ABSOLUTE AUTO 0.03 K/mm3 (0.00-0.23); BASOPHILS PERCENT AUTO 1 % (0-2); EOSINOPHILS ABSOLUTE AUTO 0.06 K/mm3 (0.00-0.68); EOSINOPHILS PERCENT AUTO 1 % (0-6); Hematocrit 26.2 % (33.0-51.0); Hemoglobin 8.8 g/dL (11.5-16.0); IMMATURE GRAN ABSOLUTE AUTO 0.04 K/mm3 (0.00-0.10); IMMATURE GRAN PERCENT AUTO 1 % (0-1); LYMPHOCYTES ABSOLUTE AUTO 1.43 K/mm3 (0.84-5.20); LYMPHOCYTES PERCENT AUTO 24 % (21-46); MONOCYTES ABSOLUTE AUTO 0.47 K/mm3 (0.16-1.47); MONOCYTES PERCENT AUTO 8 % (4-13); Mean Corpuscular HGB 31.5 pg (26.0-34.0); Mean Corpuscular HGB Conc 33.6 g/dL (31.5-36.5); Mean Corpuscular Volume 94 fL (80-100); Mean Platelet Volume 10.6 fL (9.1-12.4); NEUTROPHILS ABSOLUTE AUTO 3.85 K/mm3 (1.96-9.15); NEUTROPHILS PERCENT AUTO 66 % (41-73); Platelet Count 143 K/mm3 (150-400); RDW Coefficient Variation 13.5 % (11.7-14.2); Red Blood Cell Count 2.79 M/mm3 (3.80-5.20); White Blood Cell Count 5.88 K/mm3 (4.00-11.30)
[2023-08-06 02:32] LABS: Calcium, Blood 7.7 mg/dL (8.5-10.1); Creatinine, Blood 1.27 mg/dL (0.40-1.00); Potassium, Blood 4.2 mmol/L (3.5-5.5)
--- NOTE | 2023-08-06 06:48 | NUR ---
SHIFT SUMMRY PT REAMINS A&O X4. PT BLOOD PRESSURES ARE IMPROVING, SBP 110 - 122. HRR AFIB W/RATE IN 100 - 120'S. PT ASYMPTOMATIC DURING SHIFT EXCEPT STATES SHE FEELS "TIRED". SEE PREVIOUS NOTES FOR UPDATES ON BP AND INTERVENTIONS. SINCE LAST NURSING NOTE. THIS RN ADMINISTERED 1 500 CC BOLUS OF NS PER HOSPITALIST ORDER AND ONE TIME DOSE OF 5 MG OF MIDODRINE. SEE VITALS. PT RESTED DURING REST OF SHIFT. CALL LIGHT IN REACH. WILL UPDATE ONCOMING RN
[2023-08-06 14:16] LABS: Hematocrit 20.3 % (33.0-51.0); Hemoglobin 6.6 g/dL (11.5-16.0)
--- NOTE | 2023-08-06 14:18 | NUR ---
AM SUMMAR/TRANSFER NOTE: PT HAS BEEN LETHARGIC, AROUSES EASILY TO VOICE, ORIENTED x4, SOFT SPOKEN, COOPERATIVE W/CARE, GENERALLY WEAK. BLOOD PRESSURES CONTINUE SOFT, BUT MAPs MAINTAINED MOSTLY >65. AFIB ON MONITOR W/RATE 100-120, TRENDING UP TO 130s T/OUT MORNING. PROVIDER TO BEDSIDE FOR ASSESSMENT AND CONSULTATION W/PT AND FAMILY AT APPROX 1240, CODE STATUS CHANGED TO LIMITED CODE. AT APPROX 1340, PT's ATTENDS FOUND TO BE SATURATED W/DARK RED BLOOD AND PT WAS MINIMALLY RESPONSIVE, PALE, VERY WEAK. PROVIDER NOTIFIED W/ORDERS PLACED. STAT H/H LAB PENDING, IV FLUIDS CHANGED TO BOLUS THE REMAINING 740ML, PT PENDING TRANSFER TO ICU.
--- NOTE | 2023-08-06 15:06 | NUR ---
ASSUMED CARE PT WAS TRANSFERED FROM PCU, ARRIVED TO ROOM AROUND 1440. PT A/O X4. PT HAS WITHDRAWN AFFECT BUT WILL PARTICIPATE IN CONVERSATION APPROPRIATELY. DBS AT BEDSIDE. PT DENIES ABDOMINAL AND CHEST PAIN. PT ON RA, O2 SATS > 95%. LUNG KEBEDE CLEAR. PT DENIES SOB AT THIS TIME. CARDIAC MONITORING REFLECTS AFIB, HR 120s. PT HYPOTENSIVE, SBP 90s. MAP >60. PROTONIX GTT STARTED. BOWEL TONES HYPERACTIVE. LITER BOLUS FINISHING UPON ENTRY TO ROOM. AWAITING BLOOD PRODUCT SLIP TO BEGIN TRANFUSION. POWERGLIDE INSERTED BY FREDI DOYLE. PT'S SKIN INTACT. PEDAL AND RADIAL PULSES STRONG. PT AFEBRILE.
--- NOTE | 2023-08-06 16:22 | NUR ---
Pt. is resting but pts. son and DIL are at bedside and welcome my visit. Facilitated alife review with the family, and will remain available to the pt. and family. Son and DIL verbalized gratitude for the spiritual care visit.
--- NOTE | 2023-08-06 18:25 | NUR ---
SHIFT SUMMARY PT REMAINS A/O X4. PT HAS SLEPT SINCE ARRIVING TO ICU. 1 UNIT OF PRBCs INFUSED THIS SHIFT. PT'S LUNG KEBEDE REMAIN CLEAR, PT AFEBRILE. PT REMAINS ON RA, O2 SATS > 95%. CARDIAC MONITORING REFLECTS AFIB, HR 110s. PT'S MAP HAS REMAINED > 65. PT BLADDER SCANNED AROUND 1700, 370 mL RECORDED. PT ATTEMPTED TO USE BEDPAN, NO OUTPUT. PT DID NOT HAVE BM SINCE BEING ADMITTED TO ICU. PLAN FOR GI TO CONSULT PT. NPO SINCE ARRIVAL TO ICU. FAMILY AT BEDSIDE. CONFIRMED CODE STATUS INFORMATION WITH PT ON POLST FORM.
[2023-08-06 19:08] LABS: Hematocrit 25.4 % (33.0-51.0); Hemoglobin 8.4 g/dL (11.5-16.0)
--- NOTE | 2023-08-06 22:10 | NUR ---
ASSUMPTION OF CARE BEDSIDE SHIFT REPORT RECEIVED FROM DAYSHIFT RN. PT RESTING IN BED, SLEEPING BUT AROUSABLE. PT ORIENTED X 4, ABLE TO ANSWER QUESTIONS AND FOLLOW COMMANDS. HR 120-140'S AFIB, MAP >65. PT ON RA, OXYGEN SATURATION >95%. PT DENIES PAIN, SOB, NUMBNESS/TINGLING. ATTENDS IN PLACE. POWERGLIDE TO COLETTE INFUSING. PIV TO RAC SL. 1/2 NS INFUSING AT 100MLS/HR, PANTOPRAZOLE INFUSING AT 10MLS/HR. BED IN LOWEST POSITION, CALL LIGHT WITHIN REACH. CARE CONTINUES.
[2023-08-07] VITALS (56 sets, daily range): BP systolic 74–132; BP diastolic 54–95
[2023-08-07 05:28] LABS: BASOPHILS ABSOLUTE AUTO 0.03 K/mm3 (0.00-0.23); BASOPHILS PERCENT AUTO 1 % (0-2); EOSINOPHILS ABSOLUTE AUTO 0.14 K/mm3 (0.00-0.68); EOSINOPHILS PERCENT AUTO 2 % (0-6); Hematocrit 23.4 % (33.0-51.0); IMMATURE GRAN ABSOLUTE AUTO 0.02 K/mm3 (0.00-0.10); IMMATURE GRAN PERCENT AUTO 0 % (0-1); LYMPHOCYTES ABSOLUTE AUTO 1.56 K/mm3 (0.84-5.20); LYMPHOCYTES PERCENT AUTO 24 % (21-46); MONOCYTES ABSOLUTE AUTO 0.48 K/mm3 (0.16-1.47); MONOCYTES PERCENT AUTO 7 % (4-13); Mean Corpuscular HGB 31.6 pg (26.0-34.0); Mean Corpuscular HGB Conc 34.2 g/dL (31.5-36.5); Mean Corpuscular Volume 93 fL (80-100); Mean Platelet Volume 10.8 fL (9.1-12.4); NEUTROPHILS ABSOLUTE AUTO 4.32 K/mm3 (1.96-9.15); NEUTROPHILS PERCENT AUTO 66 % (41-73); Platelet Count 116 K/mm3 (150-400); RDW Coefficient Variation 14.9 % (11.7-14.2); Red Blood Cell Count 2.53 M/mm3 (3.80-5.20); White Blood Cell Count 6.55 K/mm3 (4.00-11.30)
[2023-08-07 06:02] LABS: Alanine Aminotransfer (ALT/SGP <6 U/L (12-78); Albumin, Blood 2.6 g/dL (3.4-5.0); Albumin/Globulin Ratio 1.2 (0.8-1.8); Alk Phos 44 U/L (50-136); Anion Gap 5 mmol/L (6-16); Aspartate Aminotrans (AST/SGOT 13 U/L (12-37); Bilirubin, Total 0.4 mg/dL (0.1-1.0); Blood Urea Nitrogen 54 mg/dL (8-24); Bun/Creatinine Ratio 51.9 (12.0-20.0); CO2, Blood 22 mmol/L (21-32); Calcium, Blood 7.5 mg/dL (8.5-10.1); Chloride, Blood 117 mmol/L (98-108); Creatinine, Blood 1.04 mg/dL (0.40-1.00); Globulin, Blood 2.2 g/dL (2.2-4.0); Glomerular Filtration Rate 52 (60-); Glucose, Blood 96 mg/dL (70-99); Potassium, Blood 3.9 mmol/L (3.5-5.5); Sodium, Blood 144 mmol/L (136-145); Total Protein, Blood 4.8 g/dL (6.4-8.2)
--- NOTE | 2023-08-07 06:13 | NUR ---
SHIFT SUMMARY PT RESTING IN BED, ALERT AND ORIENTED X4/ PT ABLE TO FOLLOW COMMANDS AND MAKE NEEDS KNOWN. HR 90-110'S AFIB, MAP >65. PT ON RA, OXYGEN SATURATION >95%. PT DENIES PAIN/SOB. PT COMPLAINING OF NAUSEA AFTER COMPLETING HALF THE BOWEL PREP, MEDICATED PER EMAR. PT HAD ONE LARGE LIQUID BROWN BLACKISH MAROON STOOL, PT INCONTINENT OF URINE. POWERGLIDE TO COLETTE INFUSING 1/2 NS AT 100MLS/HR AND PROTONIX GTT. BED IN LOWEST POSITION, CALL LIGHT WITHIN REACH. CARE CONTINUES.
--- NOTE | 2023-08-07 11:17 | NUR ---
Am note Pt alert, oriented x4; calm and cooperative with care. Appears to be sleeping intermittently. Pt denies pain, chest pain/pressure, sob, nausea, dizziness and numb/tingling. Tele afib 90-110's, bp stable. Spo2 >90% on ra, breathing even and unlabored. Abd soft, tender on palp, pt reporting cramping with bowl prep. This am stool liquid with particles in it, per nurse notify, gave 2nd dose of prep, will continue to monitor. No edema noted. Other vss. Will continue to monitor.
[2023-08-07 11:18] LABS: Stool Occult Blood Guaiac 1 Pos (Neg)
--- NOTE | 2023-08-07 17:29 | NUR ---
08/07/23 1729 Lisa Lechuga 1406 MONITOR INTACT WITH CONTINUOUS PULSE OXIMETRY, CONTINUOUS END TITAL CO2, AND INTERMITTENT BLOOD PRESSURE.DR. LO PROVIDING MAC.
--- NOTE | 2023-08-07 18:48 | NUR ---
Shift Summary Pt stool clear yellow in color. Colonoscopy completed in room with day surg team. Pt trending down this afternoon, new order for midodrine, and medicated with metoprolol po this afternoon after, for increased hr. NG tube removed. Other vss. No other acute chagnes noted. Will continue to monitor.
[2023-08-08] VITALS (21 sets, daily range): BP systolic 61–126; BP diastolic 39–88
--- NOTE | 2023-08-08 06:36 | NUR ---
SHIFT SUMMARY PATIENT TRANSFERRED FROM ICU 8 TO PCU 6 AT 2044, SLIDE TRANSFER COMPLETED. PATIENT IS ALERT AND ORIENTED X4. HAD NO COMPLAINTS OF PAIN OR SHORTNESS OF BREATH. ON ROOM AIR WITH SPO2 HIGH 90'S. VITAL SIGNS STABLE, SINUS RHYTHM ON TELE. NO ACUTE ISSUES NOTED OVERNIGHT. WILL CONTINUE TO MONITOR. CALL LIGHT WITHIN REACH.
[2023-08-08 12:28] LABS: Hematocrit 23.4 % (33.0-51.0); Hemoglobin 7.7 g/dL (11.5-16.0)
--- NOTE | 2023-08-08 14:42 | NUR ---
AM NOTES AND HYPOTENSION: PT WAS UP IN THE CHAIR FOR BREAKFAST WAS FEELING A LITTLE NAUSEATED NO EMESIS REFUSED SOME NAUSEA MEDS, VITALS HRR AFIB 90-100'S, SBP 105 MAP >65, SATS ABOVE 95% ON RA, AFEBRILE. PT WAS ABLE TO WORK WITH PHYSICAL THERAPIST WELL WAS ABLE TO DO SIT AND STANDING, PT HAS SOME DIZZINESS. SBP WAS AT 87 MAP IS AT 69 MIDODRINE 5MG 1300 DOSE WAS GIVEN AT 1200. BP WAS RECHECKED AFTER PT HAD LUNCH. PT STARTED C/O DIZZINESS AGAIN SBP WENT DOWN TO 60'S MAP AT 40'S, PT WAS ASSISTED BACK TO BED VIA 3 RNS FOR SAFETY WITH GAIT BELT AND WALKER, PT WAS PLACED ON TRENDELENBURG AND STARTED 500MLS SALINE BOLUS, PT RESPONDED WELL SBP NOW >100'S, MAP >70. DR COBOS CAME IN TO SEE PT ORDERED SOME LABS. PT NOW IN BED RESTING. STATUS CHANGED BACK TO PCU STATUS. WILL CONTINUE TO MONITOR
--- NOTE | 2023-08-08 18:23 | NUR ---
PT SUMMARY: SEE AM NOTE: NO ACUTE CHANGE SINCE LAST NOTE. PT STAYED IN BED FOR THE REST OF THE SHIFT, SAT ON THE SIDE OF THE BED FOR DINNER, PT DENIES ANY DIZZINESS/LIGHTHEADEDNESS. TOLERATED DINNER WELL. SBP STAYED >100 MAP >65 1/2 NS INFUSING AT 100MLS/HR. NO BM REPORTED FOR THE SHIFT, NO SOURCE OF BLOOD LOSS REPORTED. REPEAT H&H AT 1900 LAST DRAW WAS AT 7.7. NO NEURO CHANGES. PT HAS BEEN CALLING APPROPRIATELY. PT USES HOME DEEP BRAIN STIMULATOR AT THE BEDSIDE. PT DENIES ANY PAIN/DISCOMFORT. PT NOW IN BED RESTING, CALL LIGHTS IN REACH WILL REPORT TO ONCOMING SHIFT
[2023-08-08 18:45] LABS: Hematocrit 23.4 % (33.0-51.0); Hemoglobin 7.6 g/dL (11.5-16.0)
[2023-08-09] VITALS (11 sets, daily range): BP systolic 63–140; BP diastolic 38–107
[2023-08-09 04:15] LABS: BASOPHILS ABSOLUTE AUTO 0.03 K/mm3 (0.00-0.23); BASOPHILS PERCENT AUTO 1 % (0-2); EOSINOPHILS ABSOLUTE AUTO 0.22 K/mm3 (0.00-0.68); EOSINOPHILS PERCENT AUTO 4 % (0-6); Hematocrit 19.9 % (33.0-51.0); Hemoglobin 6.8 g/dL (11.5-16.0); IMMATURE GRAN ABSOLUTE AUTO 0.02 K/mm3 (0.00-0.10); IMMATURE GRAN PERCENT AUTO 0 % (0-1); LYMPHOCYTES ABSOLUTE AUTO 1.19 K/mm3 (0.84-5.20); LYMPHOCYTES PERCENT AUTO 22 % (21-46); MONOCYTES ABSOLUTE AUTO 0.38 K/mm3 (0.16-1.47); MONOCYTES PERCENT AUTO 7 % (4-13); Mean Corpuscular HGB 32.2 pg (26.0-34.0); Mean Corpuscular HGB Conc 34.2 g/dL (31.5-36.5); Mean Corpuscular Volume 94 fL (80-100); Mean Platelet Volume 10.3 fL (9.1-12.4); NEUTROPHILS ABSOLUTE AUTO 3.55 K/mm3 (1.96-9.15); NEUTROPHILS PERCENT AUTO 66 % (41-73); NRBC ABSOLUTE 0.02 K/mm3 (0.00-0.02); NRBC Auto 0.4 /100 WBC (0.0-0.2); Platelet Count 124 K/mm3 (150-400); RDW Coefficient Variation 14.8 % (11.7-14.2); Red Blood Cell Count 2.11 M/mm3 (3.80-5.20); White Blood Cell Count 5.39 K/mm3 (4.00-11.30)
[2023-08-09 04:35] LABS: Bun/Creatinine Ratio 13.6 (12.0-20.0); Calcium, Blood 7.4 mg/dL (8.5-10.1); Creatinine, Blood 0.96 mg/dL (0.40-1.00); Potassium, Blood 3.7 mmol/L (3.5-5.5)
--- NOTE | 2023-08-09 06:41 | NUR ---
SHIFT SUMMARY PATIENT ALERT AND ORIENTED X4. HAD NO COMPLAINTS OF PAIN OR SHORTNESS OF BREATH. ON ROOM AIR SATIGN HIGH 90'S. PATIENT IS HYPOTENSIVE THIS MORNING WITH BLOOD PRESSURE 81 SYSTOLIC, MAP OF 64. HEMEGLOBIN WAS 6.8 THIS MORNING, CURRENTLY RECEIVING BLOOD. DENIES LIGHT HEADEDNESS AND DIZZINESS. WILL CONTINUE TO MONITOR. CALL LIGHT WITHIN REACH.
--- NOTE | 2023-08-09 15:36 | NUR ---
PT HAS RECIEVED 1 UNIT OF PRBC TODAY, WITH GOOD IMPROVEMENT IN BLOOD PRESSURE. NO ACTIVE BLEEDING TODAY. PLAN FOR EGD IN THE AM WILL BE NPO AT [facility]. SHE IS ALERT AND ORIENTED TO PERSON, PLACE, AND SITUATION. VSS, I WAS ABLE TO GIVE HER MORNING DOSE OF METOPROLOL AFTER BLOOD WAS TRANSFUSED. SHE IS RESTING WELL IN BED. REMAINS WITH POOR APPETITE, SHE DOES ATTEMPT TO EAT BUT IS NOT ABLE TO EAT VERY MUCH. SHE IS ABLE TO USE CALL LIGHT AND MAKE NEEDS KNOWN
[2023-08-09 16:51] LABS: Hematocrit 25.2 % (33.0-51.0); Hemoglobin 8.5 g/dL (11.5-16.0)
[2023-08-10] VITALS (11 sets, daily range): BP systolic 107–136; BP diastolic 66–102
[2023-08-10 04:07] LABS: BASOPHILS ABSOLUTE AUTO 0.05 K/mm3 (0.00-0.23); BASOPHILS PERCENT AUTO 1 % (0-2); EOSINOPHILS ABSOLUTE AUTO 0.17 K/mm3 (0.00-0.68); EOSINOPHILS PERCENT AUTO 3 % (0-6); Hematocrit 22.9 % (33.0-51.0); Hemoglobin 7.8 g/dL (11.5-16.0); IMMATURE GRAN ABSOLUTE AUTO 0.02 K/mm3 (0.00-0.10); IMMATURE GRAN PERCENT AUTO 0 % (0-1); LYMPHOCYTES ABSOLUTE AUTO 1.24 K/mm3 (0.84-5.20); LYMPHOCYTES PERCENT AUTO 23 % (21-46); MONOCYTES ABSOLUTE AUTO 0.39 K/mm3 (0.16-1.47); MONOCYTES PERCENT AUTO 7 % (4-13); Mean Corpuscular HGB Conc 34.1 g/dL (31.5-36.5); Mean Corpuscular Volume 91 fL (80-100); Mean Platelet Volume 10.4 fL (9.1-12.4); NEUTROPHILS ABSOLUTE AUTO 3.43 K/mm3 (1.96-9.15); NEUTROPHILS PERCENT AUTO 65 % (41-73); NRBC ABSOLUTE 0.02 K/mm3 (0.00-0.02); NRBC Auto 0.4 /100 WBC (0.0-0.2); Platelet Count 138 K/mm3 (150-400); RDW Coefficient Variation 15.4 % (11.7-14.2); RDW Standard Deviation 50.1 fL (35.1-46.3); Red Blood Cell Count 2.52 M/mm3 (3.80-5.20)
[2023-08-10 04:45] LABS: Albumin, Blood 2.6 g/dL (3.4-5.0); Albumin/Globulin Ratio 1.1 (0.8-1.8); Bilirubin, Total 0.4 mg/dL (0.1-1.0); Bun/Creatinine Ratio 16.2 (12.0-20.0); Calcium, Blood 7.7 mg/dL (8.5-10.1); Creatinine, Blood 0.93 mg/dL (0.40-1.00); Globulin, Blood 2.3 g/dL (2.2-4.0); Potassium, Blood 3.2 mmol/L (3.5-5.5); Total Protein, Blood 4.9 g/dL (6.4-8.2)
--- NOTE | 2023-08-10 06:34 | NUR ---
SHIFT SUMMARY PATIENT ALERT AND ORIENTED X4. HAD NO COMPLAINTS OF PAIN OR SHORTNESS OF BREATH. HAD A BOWEL MOVEMENT WITH DARK, TARRY LOOKING STOOL. BLOOD PRESSURE WAS STABLE. CONTINUES ON ROOM AIR. WILL CONTINUE TO MONITOR. CALL LIGHT WITHIN REACH.
--- NOTE | 2023-08-10 08:30 | NUR ---
PT TO OR FOR EGD, PO MEDS HELD UNTIL PT RETURNS, OR CREW ALSO ASKS THAT POTASSIUM BE HELD UNTIL AFTER PROCEEDURE
--- NOTE | 2023-08-10 09:20 | NUR ---
08/10/23 [address] RIOS; SEE ANESTHESIA RECORDS.
[2023-08-10 16:23] LABS: Hematocrit 25.1 % (33.0-51.0); Hemoglobin 8.6 g/dL (11.5-16.0)
--- NOTE | 2023-08-10 17:46 | NUR ---
PT IS ALERT AND ORIENTED TO SELF AND SITUATION. SHE HAS BEEN TO DAY SURGERY, EGD REVEALED A MASS IN STOMACH, CT WAS PERFORMED THERE WAS NO METASTESIS NOTED ON CT. PT AND FAMILY ARE MADE AWARE OF THE EGD AND CT RESULTS. PER FAMILY PT IS UNABLE TO RETURN TO THERE HOME WHERE SHE HAS BEEN LIVING FOR A COUPLE MONTHS THE [facility] WILL NOT ALLOW HER TO LIVE THERE. PT IS SCHEDULED FOR EVALUATION TO GO THE [facility] FOR ASSISTED LIVING CARE ON 08/19. PER DR COBOS PT WILL LIKELY REMAIN HERE IN THE HOSPITAL UNTIL SATURDAY WILL BE SEEN BY CARE MANAGEMENT. VSS. MIDODRINE WAS HELD PRESSURES HAVE SYSTOLICALLY REMAINED ABOVE 120s FOR THE DAY. SHE DENIES CP AND SOB.
[2023-08-11] VITALS (7 sets, daily range): BP systolic 87–123; BP diastolic 61–79
--- NOTE | 2023-08-11 03:00 | NUR ---
REPORT TAKEN FROM BRIAN DOYLE TO ASSUME CARE OF PT AT THIS TIME. PT RESTING IN BED WITHOUT DISTRESS.
--- NOTE | 2023-08-11 04:13 | NUR ---
SHIFT SUMMARY ASSUMED CARE OF PT LATER IN SHIFT. PT HAS BEEN RESTING COMFORTABLY IN BED, S/P EGD. REPORT FROM PREVIOUS NURSE THAT PT STILL HAVING DARK STOOLS. BLOOD PRESSURES ARE STABLE. PT HAS BEEN BEDREST, A/OX4 AND MAKING NEEDS KNOWN. PLAN OF CARE REMAINS UNCHANGED.
[2023-08-11 05:12] LABS: BASOPHILS ABSOLUTE AUTO 0.03 K/mm3 (0.00-0.23); BASOPHILS PERCENT AUTO 1 % (0-2); EOSINOPHILS ABSOLUTE AUTO 0.17 K/mm3 (0.00-0.68); EOSINOPHILS PERCENT AUTO 3 % (0-6); Hematocrit 22.8 % (33.0-51.0); Hemoglobin 7.8 g/dL (11.5-16.0); IMMATURE GRAN ABSOLUTE AUTO 0.02 K/mm3 (0.00-0.10); IMMATURE GRAN PERCENT AUTO 0 % (0-1); LYMPHOCYTES ABSOLUTE AUTO 1.13 K/mm3 (0.84-5.20); LYMPHOCYTES PERCENT AUTO 21 % (21-46); MONOCYTES ABSOLUTE AUTO 0.38 K/mm3 (0.16-1.47); MONOCYTES PERCENT AUTO 7 % (4-13); Mean Corpuscular HGB 31.6 pg (26.0-34.0); Mean Corpuscular HGB Conc 34.2 g/dL (31.5-36.5); Mean Corpuscular Volume 92 fL (80-100); Mean Platelet Volume 10.3 fL (9.1-12.4); NEUTROPHILS ABSOLUTE AUTO 3.61 K/mm3 (1.96-9.15); NEUTROPHILS PERCENT AUTO 68 % (41-73); Platelet Count 154 K/mm3 (150-400); RDW Standard Deviation 49.8 fL (35.1-46.3); Red Blood Cell Count 2.47 M/mm3 (3.80-5.20); White Blood Cell Count 5.34 K/mm3 (4.00-11.30)
[2023-08-11 05:32] LABS: Bun/Creatinine Ratio 10.1 (12.0-20.0); Calcium, Blood 7.7 mg/dL (8.5-10.1); Creatinine, Blood 0.9 mg/dL (0.40-1.00); Potassium, Blood 3.6 mmol/L (3.5-5.5)
--- NOTE | 2023-08-11 06:27 | NUR ---
SHIFT SUMMARY: A&OX4. ABLE TO FOLLOW DIRECTIONS AND MAKE NEEDS KNOWN. DENIES FEELINGS OF CHEST PAIN/PRESSURE. HR IRREGULAR IN 90'S. BP STABLE, SEE RECORDED VITAL SIGNS. O2 SATS > 90% ON RA. DENIES FEELING SOB. REPORTS ABODMEN FEELING TENDER BUT DENIES ANY NAUSEA. PT CONTINUES TO HAVE SOFT, BLACK STOOLS. NO ACUTE CHANGES NOTED DURING CARE. REPORTS OFF TO [facility] AT APPXOIMATELY 0200. CALL LIGHT IN REACH. BED IN LOW POSITION.
--- NOTE | 2023-08-11 18:20 | NUR ---
PT HAS BEEN RESTING WELL IN BED T/O THE DAY. SHE REMAINS A/O X3. SHE DENIES CP AND SOB. SHE REMAINS WITH BROWN TO BLACK STOOLS. HER APPETITE HAS INCREASED TODAY, SHE ATE INCREASINGLY MORE THROUGH THE DAY. VSS, PRESSURES HAVE BEEN MORE SOFT TODAY THAN THE PREVIOUS SHIFT AND HAS REQUIRED THE MIDODRINE T/O THE DAY FOR PRESSURES. FAMILY HAS BEEN IN TO SEE HER TODAY THEY ARE UPDATED. SHE HAS BEEN MADE MEDICAL STATUS WITH TELE MONITORING. OTHERWISE THERE ARE NO ACUTE CHANGES TO DISCUSS FOR THIS SHIFT
[2023-08-12] VITALS (12 sets, daily range): BP systolic 97–135; BP diastolic 61–96
[2023-08-12 05:14] LABS: Hematocrit 21.8 % (33.0-51.0); Hemoglobin 7.2 g/dL (11.5-16.0)
--- NOTE | 2023-08-12 06:54 | NUR ---
SUMMARY PT HAS BEEN RESTING WELL AND VOIDING FREQUENTLY. PT HAS NO COMPLAINTS. NO BM NOTED THIS SHIFT. DENIES CX PAIN OR SOB. NO OTHER ISSUES NOTED. CALL LIGHT IN REACH. BED ALARM ON.
--- NOTE | 2023-08-12 09:38 | NUR ---
care assumption this rn assumed care at 0700. vital signs stable. patient made medical status with tele. patient is alert and oreinted x4. perrla. patient reports no pain, chest pain/pressure or shortness of breath. when sitting at the side of bed for breakfast patient stated when first sitting up havign some dizziness, but it went away after a few mins. patient spoke with md this was a reason she wasn't getting up and patient encouraged by this rn and md to get up with staff assistance to prevent falling and to help if patient becomes dizzy. patient verbalized understanding and agreement. will get patient up in chair for lunch. see shift assessment for further detials. plan for therapy to come work with patient and see if patient need half-way facility, per patient family this is not patient baseline and patient usually can get up and walk around. awaiting for placement. [place] with care management reaching out to facilities and figuring out safe discharge plan.
--- NOTE | 2023-08-12 12:23 | NUR ---
ORTHOSTATIC HYPOTENSION patient was working with physical therapy and patient started to mumble words per therapist and patient stating she feels like shes on a boat that is rocking. therapist called this rn. this rn into room patient hypotensive upon entering room from physical therapist cycling blood pressure. when this rn recycled patient blood pressure within normal parameters. this rn and physical therapist at bedside working with patient did a set of orthostatic vitals. see vitals. patient wanting to get up to chair and stated that she felt better. when this rn, physical therapist jamaica, and brandyn interactive art director. patient attempting to get into chair but while standing patient stated the boating is rocking and feeling woozy. patient attempted to take step and then patient said she couldnt and tensed up and gripped the walker, eyes closed, and would not respond. this rn therapist and brandyn got patient into bed and once laying down patient opened eyes and stated "i blacked out". patient vitals done. patient once back in bed stated feeling better and not feeling woozy or on a boat. this rn called md griffin and informed her of the situation. orders to place comrpession stockings on patient placed.
--- NOTE | 2023-08-12 14:41 | NUR ---
transfer of care this rn gave report to medical floor rn tesha, who is assuming care of patient. this rn informed son, matt, that patient moved to room 305. patient left with all belongings and in no distress. see previous notes. no acute changes.
--- NOTE | 2023-08-12 15:03 | NUR ---
ASSUMED CARE OF PATIENT UPON HER TRANSFER FROM PCU 6 AT 1445. A&O X 4, PLEASANT AND COOPERATIVE. EDUCATED PT THAT, BECAUSE OF HER ORTHOSTATIC BP, SHE WILL NEED TO STAY IN BED. PLAN IS TO TRANSFUSE 1 UNIT PRBC'S AND AFTER THAT, IF SHE'S NOT DIZZY, WE WILL ATTEMPT TO GET HER UP TO BSC. DENIES PAIN AT THIS TIME, NO N/V. CALL LIGHT AND BELONGINGS IN REACH. BED ALARM ON, WITH BED ALARM PLUGGED IN TO WALL.
--- NOTE | 2023-08-12 18:42 | NUR ---
SHIFT SUMMARY: NO ACUTE EVENTS SINCE TRANSFER. HAS NOT GOTTEN OOB YET. ONE UNIT PRBC'S TRANSFUSING AT TIME OF THIS NOTE, TOLERATING WELL SO FAR. APPETITE FOR DINNER WAS QUITE POOR. DENIES PAIN AT THIS TIME. EXPRESSED CONCERN ABOUT BEING DISCHARGED PRIOR TO HER [facility]ART[facility] ON AUG [facility], IS UNSURE IF HER SON AND DIL CAN CARE FOR HER IN THE INTERIM.
--- NOTE | 2023-08-12 20:54 | NUR ---
1900 REPORT FROM BRETT DOYLE- PT LAYING IN BED - BLOOD TRANSFUSING WITHOUT S/S REACTIONS- EDUCATED PT IN S/S OF REACTIONS- PT STATED UNDERSTANDING- VSS, 2014 - BLOOD FINISHED, VITALS DONE AND WNL, PT DENIES S/S REACTIONS- WILL CONTINUE TO MONITOR
[2023-08-13 03:06] VITALS: BP 118/66
--- NOTE | 2023-08-13 03:12 | NUR ---
08/12/232104 - PT ATTEMPTED TO GET UP TO BSC, PT SAT ON SIDE OF BED AND C/O DIZZINESS- ENCOURAGED PT TO USE BEDPAN- BP CHECKED - BP 130/96 HR 98- PT HAD BLACK FORMED STOOL- WILL CONTINUE TO MONITOR
[2023-08-13 05:08] LABS: Hematocrit 27.7 % (33.0-51.0); Hemoglobin 9.5 g/dL (11.5-16.0)
--- NOTE | 2023-08-13 06:45 | NUR ---
SHIFT SUMMARY BEDSIDE REPORT FROM BRETT WATERS RN- PT TRANFUSING BLOOD WHEN ASSUMED CARE, PT TOLERATED WELL- PT USED BEDPAN T/O NIGHT AFTER ATTEMPTING TO SIT UP IN BED AND C/O DIZZINESS- PUREWICK OFFERED- PT DENIED AND TOLD RADIO TELEVISION TECHNICAL DIRECTOR THAT SHE WILL LET STAFF KNOW IF SHE CHANGES HER MIND- PT C/O RIGHT UPPER ABD PAIN BEFORE HAVING BM WHICH RESOLVED, PT TO INFORM THIS RN IF PAIN RETURNS- PT HR ELEVATED DURING VITALS- PT HAS HX OF AFIB- CHECKED APICAL PULSE = IRREGULAR AT 94- PT USES CALL LIGHT TO MAKE NEEDS KNOWN APPROPRIATELY, BED LOW POSITION, CALL LIGHT WITHIN REACH
[2023-08-13 07:14] VITALS: BP 123/74
[2023-08-13 12:35] VITALS: BP 111/72
[2023-08-13 14:43] VITALS: BP 124/82
--- NOTE | 2023-08-13 17:21 | NUR ---
Pt. is awake in bed and welcomes my visit. Re-established rapport and facilitated a life review. Pt. is both unsettled and at peace with her recent diagnosis of cancer. Pt. verbalized that she is "ready to go" and does not wish to pursue chemotherapy. Considered matters of her heritage and her fernie. Pt. displays evidence of being aware and engaged. Prayed with Pt. Pt. verbalized gratitude for the spiritual care visit and welcomed this hydrator operator to return.
[2023-08-13 17:34] VITALS: BP 142/94
--- NOTE | 2023-08-13 18:32 | NUR ---
SHIFT SUMMARY: PATIENT ORTHOSTATIC WHEN WORKING WITH PHYSICAL THERAPY TODAY. A BIT LATER, PT NEARLY COLLAPSED WHEN TRANSFERRING FROM [facility] [place]. THIS AUTHOR HELD HER UP BY GAIT BELT AND HAD TO PHYSICALLY PUT HER BTB. NS BOLUS GIVEN AND RESTING BP IMPROVED. DENIED PAIN. APPETITE POOR, PO FLUID INTAKE PROBABLY SUB-PAR. SON AND DIL VISITED AND STATED THAY ARE UNABLE TO CARE FOR PATIENT AT HOME. HOME ENERGY AUDITOR FROM [facility] INTERVIEWED PATIENT TODAY. SHE HAS A MOVE IN DATE OF AUG 19.
[2023-08-13 20:01] VITALS: BP 95/75
[2023-08-14] VITALS (7 sets, daily range): BP systolic 83–133; BP diastolic 57–89
[2023-08-14] MEDS ORDERED: CARVEDILOL25 M9 PO (02:50)
--- NOTE | 2023-08-14 04:27 | NUR ---
SHIFT SUMMARY PT LAYING IN BED DURING BEDSIDE REPORT, REPORT FROM BRETT WATERS RN- PT DENIES PAIN/SOB- PT USED BEDPAN T/O NIGHT D/T NEAR SYNCOPE EPISODE EARLIER IN THE DAY WHILE GETTING UP TO BSC- PT TOOK SCHEDULED MEDICATION T/O NIGHT, PT USES CALL LIGHT APPROPRIATE, BED LOW POSITION, CALL LIGHT WITHIN REACH
[2023-08-14 05:31] LABS: Hematocrit 27.4 % (33.0-51.0); Hemoglobin 9.2 g/dL (11.5-16.0)
[2023-08-14 05:58] LABS: Bun/Creatinine Ratio 13.6 (12.0-20.0); Calcium, Blood 8.3 mg/dL (8.5-10.1); Creatinine, Blood 1.03 mg/dL (0.40-1.00); Potassium, Blood 3.1 mmol/L (3.5-5.5)
--- NOTE | 2023-08-14 16:25 | NUR ---
Pt. is awake in bed when she welcomes my visit. Pt. is pleasant, but displays evidence of being cold. This ingot header observes that the room is chilly. Listen with empathy and a calming presence. Rapport is re-established. Faciitate more life review and consider matters of fernie, culture, and belief. Prayed with Pt. and provided the Pt. with a NT/Psalms at her request. Pt. verbalized gratitude for both the visit and the bible. Pt. welcomed this ingot header to return.
--- NOTE | 2023-08-14 18:01 | NUR ---
SUMMARY- PT A/OX4, USES CALL LIGHT. BEDREST RELATED TO ORTHOSTATIC BP'S, WITH SYMPTOMS OF FEELING LIGHT HEADED UPON SITTING AND STANDING. LAYING BP IS 130'S/80'S DOWN TO 70'S/50'S HR 100'S. PT USES BED GRACE TO VOID. TOLERATING FOOD AND FLUID'S. DENIES ABD PAIN OR PAIN ANYWHERE. FAMILY AT BEDSIDE AROUND LUNCH TIME. HAD A CHANCE TO SPEEK WITH DR BARAJAS WHO INFORMED THEM OF PT'S NEW STOMACH CANCER DIAGNOSIS. GOT PALLIATIVE INVOLVED. PLANS FOR THE LANDING CANCELED. WILL BE WORKING ON DISCHARGE TO ADULT [employer], [employer] FACILITATING. WILL REPORT TO MAREN RN.
--- NOTE | 2023-08-14 19:40 | NUR ---
HOSPITALIST CONTACTED. CONTACTED FOR PATIENT B/P 86/57 AND PULSE OF 95, MAP 66.6. PATIENT AT THIS TIME IS ASYMPTOMATIC. PATIENTS PREVIOUS VITALS TAKEN AT 1746 WERE FOLLOWS- B/P 83/59 AND PULSE OF 78-PATIENT WAS MEDICATED PER EMAR FOR THIS BLOOD PRESSURE. PATIENT ADMITTED FOR HYPOTENSION. DR. BOWER ORDERED FOR MIDODRINE 10MG TABLET TO BE STARTED TODAY AND TO CONTINUE TIDD-SEE ORDER.
--- NOTE | 2023-08-14 19:40 | NUR ---
ORTHO VS 1048 R ARM LAYING- 133/89- HR 99 SITTING- 83/60- HR 86 BEGAN FEELING LIGHT HEADED STANDING- 72/50- HR 92, FEELING VERY LIGHT HEADED, BARLY ABLE TO STAND L ARM (1100) LAYING 146/76 HR 109 SITTING 98/71 HR 104, FEELING LIGHT HEADED STANDING 70/45 HR 106 FEELING VERY LIGHT HEADED CALLED RESULTS TO DR BARAJAS
[2023-08-14 21:00] LABS: Hematocrit 26.3 % (33.0-51.0); Hemoglobin 8.8 g/dL (11.5-16.0); Mean Corpuscular HGB 31.2 pg (26.0-34.0); Mean Corpuscular HGB Conc 33.5 g/dL (31.5-36.5); Mean Corpuscular Volume 93 fL (80-100); Mean Platelet Volume 9.9 fL (9.1-12.4); Platelet Count 207 K/mm3 (150-400); RDW Coefficient Variation 16.9 % (11.7-14.2); RDW Standard Deviation 53.7 fL (35.1-46.3); Red Blood Cell Count 2.82 M/mm3 (3.80-5.20); White Blood Cell Count 6.35 K/mm3 (4.00-11.30)
--- NOTE | 2023-08-14 22:51 | NUR ---
PATIENT HAD A B/P OF 86/57 AND PULSE OF 84 AT 1917-PATIENT MEDICATED WITH 10MG OF MIDODRINE PER EMAR. B/P RECHECKED AT 2125 WITH A B/P OF 120/81 AND A PULSE OF 95.
[2023-08-15] VITALS (8 sets, daily range): BP systolic 78–147; BP diastolic 54–98
--- NOTE | 2023-08-15 04:19 | NUR ---
SHIFT SUMMARY PATIENT IS A/O X4, ABLE TO MAKE HER NEEDS KNOWN. PATIENT IS POSITIVE FOR ORTHOSTATIC HYPOTENSION-MEDICATED PER EMAR FOR HYPOTENSIVE B/P-SEE PREVIOUS NOTE. PATIENT USING THE BEDPAN TO VOID. PER REPORT PATIENT IS AWAITING TO D/C TO [facility] FOLLOWING PLANS TO GO [place]. PATIENT CALLS APPROPRIATELY, TAKES PILLS WHOLE WITH WATER. BED IS LOCKED IN THE LOWEST POSITION WITH CALL LIGHT IN REACH.
[2023-08-15 05:01] LABS: Hematocrit 25.6 % (33.0-51.0); Hemoglobin 8.5 g/dL (11.5-16.0)
[2023-08-15 05:22] LABS: Bun/Creatinine Ratio 12.3 (12.0-20.0); Calcium, Blood 7.7 mg/dL (8.5-10.1); Creatinine, Blood 0.98 mg/dL (0.40-1.00); Potassium, Blood 3.5 mmol/L (3.5-5.5)
--- NOTE | 2023-08-15 08:19 | NUR ---
pt laying in bed awake a/ox3, pleasant and coopertive with care, follows commands well, denies any pain and reports a good night, lungs are clear t/o, resp even and unlabored, no cough noted, on r/a, hrirr, no edema noted, ppp+2, cap refill <3 sec, vs stable while laying after she sat up for assessment she became a bit dizzy, b/p was rechecked in the 70's, her midodrine was given, and layed back in bed, after ten minutes rechecked and in 80's, map over 60, will recheck in half an hr, piv to rfa and power glide to benedicto, sites are clear and patent, btx4, abd flat soft nontender, voids without diff, briefs in place, skin c/w/d, sinai gil[facility], call light in reach.
[2023-08-15 11:12] LABS: Influenza A, PCR NEGATIVE (NEGATIVE); Influenza B, PCR NEGATIVE (NEGATIVE); Resp Syncytial Virus, PCR NEGATIVE (NEGATIVE); SARS-Cov-2 (COVID-19) PCR, MMC NEGATIVE (NEGATIVE)
--- NOTE | 2023-08-15 17:03 | NUR ---
Made a visit to [facility] today, after reading chart note from Pastor Gama. He stated the pt did not want chemo or other treatment. She also stated she is "ready to go" according to pastoral notes. She confirms this to me, with her son and DIL present, and they agree this is what she is saying. However, she does have a follow up appointment with Dr. Garrett, and states she would like to keep it, "just see what he has to say". We discussed hospice, and they all 3 verbalize understanding that it is an option. They report gratefulness for this as an option, and also verbalize understanding about how to ask for it if needed. 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 She states she will think about all of this, and both she and her family state their appreciation for the talk, and the information.
--- NOTE | 2023-08-15 18:10 | NUR ---
pt is being discharged to [facility], transport came but with a wheelchair, after several attempts to get her up today, do not feel it's safe for her to sit in a wheelchair with only the helper/driver because she is so symptomatic, and couls pass out, critical care nurse specialist was notified, and was able to make arrangements for gurney through [facility], arranged for 1829, pt, family and Dr. Crawford notified, iv x 2 have been removed intact, all her belongigs are packed ready, report was given. call light in reach.
--- NOTE | 2023-08-15 18:25 | NUR ---
pt left for [facility] via [facility] with all her belongings.
== END 2023-08-15 18:35 | DRG 374 ==
LOC: ER 18:42 → PCU 18:43 → ICUE 08-06 14:08 → MEDS 08-06 14:08 → ICUE 08-06 14:16 → PCU 08-07 20:45 → MEDS 08-12 14:25 → ENPENDDIS 08-13 11:56 → MEDS 08-15 18:35
PROVIDERS: Family Medicine; Internal Medicine; Internal Medicine Gastroenterology; Student in an Organized Health Care Education/Training Program; ADMIT Hospitalist
PROC: 30233N1 Transfusion of Nonautologous Red Blood Cells into Peripheral Vein, Percutaneous Approach (ICD-10-PCS; 2023-08-06)
PROC: 0DBN8ZZ Excision of Sigmoid Colon, Via Natural or Artificial Opening Endoscopic (ICD-10-PCS; 2023-08-07)
PROC: 0DBM8ZZ Excision of Descending Colon, Via Natural or Artificial Opening Endoscopic (ICD-10-PCS; 2023-08-07)
PROC: 0DBH8ZZ Excision of Cecum, Via Natural or Artificial Opening Endoscopic (ICD-10-PCS; 2023-08-07)
PROC: 0DBK8ZZ Excision of Ascending Colon, Via Natural or Artificial Opening Endoscopic (ICD-10-PCS; principal; 2023-08-07 16:30)
PROC: 0DBL8ZZ Excision of Transverse Colon, Via Natural or Artificial Opening Endoscopic (ICD-10-PCS; 2023-08-07 16:30)
PROC: 0DB68ZZ Excision of Stomach, Via Natural or Artificial Opening Endoscopic (ICD-10-PCS; 2023-08-10)
PROC: 0DB68ZX Excision of Stomach, Via Natural or Artificial Opening Endoscopic, Diagnostic (ICD-10-PCS; 2023-08-10)
DX: C16.0 Malignant neoplasm of cardia (principal); K57.31 Diverticulosis of large intestine without perforation or abscess with bleeding; R57.8 Other shock; D62 Acute posthemorrhagic anemia; I48.19 Other persistent atrial fibrillation; K92.1 Melena; N39.0 Urinary tract infection, site not specified; Z51.5 Encounter for palliative care; I95.1 Orthostatic hypotension; E03.9 Hypothyroidism, unspecified; E87.6 Hypokalemia; I27.20 Pulmonary hypertension, unspecified; G20.A1 Parkinson's disease without dyskinesia, without mention of fluctuations; B96.20 Unspecified Escherichia coli [E. coli] as the cause of diseases classified elsewhere; K64.4 Residual hemorrhoidal skin tags; E53.8 Deficiency of other specified B group vitamins; Z96.82 Presence of neurostimulator; N18.32 Chronic kidney disease, stage 3b; D63.1 Anemia in chronic kidney disease; D50.9 Iron deficiency anemia, unspecified; K63.5 Polyp of colon; I07.1 Rheumatic tricuspid insufficiency; W19.XXXA Unspecified fall, initial encounter; Z11.52 Encounter for screening for COVID-19; Z79.899 Other long term (current) drug therapy; Z79.890 Hormone replacement therapy; Z79.82 Long term (current) use of aspirin; Z98.890 Other specified postprocedural states
CPT/HCPCS: 0241U; 36415; 36430; 70450; 71260; 74177; 80048; 80053; 81001; 82024; 82272; 82533; 82728; 83540; 83550; 83605; 83735; 83880; 84145; 84439; 84443; 85014; 85018; 85025; 85027; 86850; 86900; 86901; 86923; 87077; 87086; 87186; 88305; 88341; 88342; 88360; 93005; 93010; 93306; 96360; 96361; 96365; 96376; 97110; 97162; 97530; 99285-25; A9270; C1751; C9113; G0378; J0696; J1160; J2001; J2405; J2704; J3480; J7030; J7040; J7050; J7120; P9016; Q9967

== ENCOUNTER 2023-08-23 13:49 | Emergency (ER) | payer OTHER ==
[~2023-08-23] VITALS: Ht 170.2 cm; Wt 67.6 kg
[~2023-08-23 13:49] MED LIST changes: +CARVEDILOL25 M9 PO; +PRAM.125 PO
[2023-08-23] MEDS ORDERED: MIDO5 PO (14:47)
[2023-08-23 14:54] LABS: BASOPHILS ABSOLUTE AUTO 0.05 K/mm3 (0.00-0.23); BASOPHILS PERCENT AUTO 1 % (0-2); EOSINOPHILS ABSOLUTE AUTO 0.03 K/mm3 (0.00-0.68); EOSINOPHILS PERCENT AUTO 0 % (0-6); Hematocrit 28.7 % (33.0-51.0); Hemoglobin 9.6 g/dL (11.5-16.0); IMMATURE GRAN ABSOLUTE AUTO 0.02 K/mm3 (0.00-0.10); IMMATURE GRAN PERCENT AUTO 0 % (0-1); LYMPHOCYTES ABSOLUTE AUTO 0.89 K/mm3 (0.84-5.20); LYMPHOCYTES PERCENT AUTO 10 % (21-46); MONOCYTES ABSOLUTE AUTO 0.43 K/mm3 (0.16-1.47); MONOCYTES PERCENT AUTO 5 % (4-13); Mean Corpuscular HGB 30.3 pg (26.0-34.0); Mean Corpuscular HGB Conc 33.4 g/dL (31.5-36.5); Mean Corpuscular Volume 91 fL (80-100); Mean Platelet Volume 10.4 fL (9.1-12.4); NEUTROPHILS ABSOLUTE AUTO 7.22 K/mm3 (1.96-9.15); NEUTROPHILS PERCENT AUTO 84 % (41-73); Platelet Count 291 K/mm3 (150-400); RDW Coefficient Variation 14.7 % (11.7-14.2); RDW Standard Deviation 47.9 fL (35.1-46.3); Red Blood Cell Count 3.17 M/mm3 (3.80-5.20); White Blood Cell Count 8.64 K/mm3 (4.00-11.30)
[2023-08-23 15:45] LABS: Albumin, Blood 3.2 g/dL (3.4-5.0); Bun/Creatinine Ratio 11.9 (12.0-20.0); Calcium, Blood 8.1 mg/dL (8.5-10.1); Creatinine, Blood 1.51 mg/dL (0.40-1.00); Globulin, Blood 3.2 g/dL (2.2-4.0); Potassium, Blood 3.9 mmol/L (3.5-5.5); Total Protein, Blood 6.4 g/dL (6.4-8.2)
[2023-08-23 15:46] LABS: Bilirubin, Total 0.4 mg/dL (0.1-1.0)
[2023-08-23 18:15] VITALS: BP 141/102
== END 2023-08-23 18:24 | disposition home or self-care (01) ==
LOC: ER 13:49
PROVIDERS: Emergency Medicine; Student in an Organized Health Care Education/Training Program
DX: R55 Syncope and collapse (principal); E86.0 Dehydration; D64.9 Anemia, unspecified; G20.A1 Parkinson's disease without dyskinesia, without mention of fluctuations; E03.9 Hypothyroidism, unspecified; N18.30 Chronic kidney disease, stage 3 unspecified; I48.91 Unspecified atrial fibrillation; Z79.899 Other long term (current) drug therapy
CPT/HCPCS: 80053; 85025; 93005; 93010; 99285-25; J7030